=== PATIENT | male | born 1970 | race Caucasian/White ===

== ENCOUNTER → 2018-01-13 | Outpatient (CLI) | payer OTHER | END | disposition home or self-care (01) | LOC: RAD 13:28 | PROVIDERS: ATTEND Internal Medicine Hematology & Oncology | DX: R76.11 Nonspecific reaction to tuberculin skin test without active tuberculosis (principal) | CPT/HCPCS: 71045 ==

== ENCOUNTER 2020-12-07 12:47 | Outpatient (CLI) | payer OTHER ==
[2020-12-07] MEDS ORDERED: MIDAZOLAM 1 MG/ML, 5ML ONE (13:47)
[2020-12-07] MEDS ORDERED: NALOXONE 1 MG/ML, 2ML ONE (13:47)
[2020-12-07] MEDS ORDERED: FLUMAZENIL 0.1 MG/1 ML, 5ML ONE (13:47)
[2020-12-07] MEDS ORDERED: FENTANYL PF 100 MCG/2ML ONE (13:47)
[2020-12-15] MEDS ORDERED: LONG ACTING INSULIN PO (14:45)
[2020-12-15] MEDS ORDERED: ATORVASTATIN PO (14:45)
== END 2020-12-07 23:59 | disposition home or self-care (01) ==
LOC: RAD 12:47
PROVIDERS: ATTEND Physician Assistant Surgical
DX: M54.2 Cervicalgia (principal); M47.22 Other spondylosis with radiculopathy, cervical region; M48.02 Spinal stenosis, cervical region; E11.9 Type 2 diabetes mellitus without complications
CPT/HCPCS: 72141; 99156; 99157; J2250; J3010; J2310